=== PATIENT | female | born 1935 | race Two or more races ===

== ENCOUNTER 2019-01-25 10:12 | Outpatient (CLI) | payer OTHER ==
[~2019-01-25 10:12] MED LIST: CARVEDILOL25 MG; GLUCOPHAGE XR500 MG; JANUVIA50 MG; LOSARTAN-HCTZ1 EAC2
== END 2019-01-25 10:14 | disposition home or self-care (01) ==
LOC: RAD 10:12
DX: I11.9 Hypertensive heart disease without heart failure (principal); R06.02 Shortness of breath

== ENCOUNTER 2019-10-18 08:59 | Outpatient (CLI) | payer OTHER | END 2019-10-18 09:07 | disposition home or self-care (01) | LOC: NUCLEAR 08:59 | PROVIDERS: ATTEND Internal Medicine Geriatric Medicine | DX: M15.0 Primary generalized (osteo)arthritis (principal); M81.0 Age-related osteoporosis without current pathological fracture ==

== ENCOUNTER 2020-06-01 11:01 | Outpatient (CLI) | payer OTHER | END 2020-06-01 11:59 | disposition home or self-care (01) | LOC: RAD 11:01 | PROVIDERS: ATTEND Internal Medicine Geriatric Medicine | DX: I11.9 Hypertensive heart disease without heart failure (principal); R06.02 Shortness of breath ==

== ENCOUNTER 2021-06-15 15:37 | Outpatient (CLI) | payer OTHER | END 2021-06-15 15:43 | disposition home or self-care (01) | LOC: RAD 15:37 | PROVIDERS: ATTEND Internal Medicine Geriatric Medicine | DX: M19.90 Unspecified osteoarthritis, unspecified site (principal); M17.0 Bilateral primary osteoarthritis of knee ==

== ENCOUNTER 2022-01-18 08:05 | Outpatient (CLI) | payer OTHER | END 2022-01-18 08:12 | disposition home or self-care (01) | LOC: SONOGRAMA 08:05 | PROVIDERS: ATTEND Internal Medicine Geriatric Medicine | DX: M75.102 Unspecified rotator cuff tear or rupture of left shoulder, not specified as traumatic (principal) ==

== ENCOUNTER 2023-04-18 09:33 | Outpatient (CLI) | payer OTHER | END 2023-04-18 09:40 | disposition home or self-care (01) | LOC: NUCLEAR 09:33 | PROVIDERS: ATTEND Internal Medicine | DX: I73.9 Peripheral vascular disease, unspecified (principal); I87.2 Venous insufficiency (chronic) (peripheral) ==

== ENCOUNTER 2023-04-19 08:43 | Outpatient (CLI) | payer OTHER | END 2023-04-19 08:44 | disposition home or self-care (01) | LOC: NUCLEAR 08:43 | PROVIDERS: ATTEND Internal Medicine | DX: I73.9 Peripheral vascular disease, unspecified (principal); I87.2 Venous insufficiency (chronic) (peripheral) ==

== ENCOUNTER → 2023-10-10 10:04 | Outpatient (CLI) | payer OTHER | END | disposition home or self-care (01) | LOC: NUCLEAR 10:04 | PROVIDERS: ATTEND Internal Medicine | DX: I50.9 Heart failure, unspecified (principal); E85.82 Wild-type transthyretin-related (ATTR) amyloidosis | CPT/HCPCS: 78469; A9538 ==